=== PATIENT | male | born 1990 ===

== ENCOUNTER 2018-05-19 00:23 | Emergency (ER) | payer MEDICAID, OTHER ==
[~2018-05-19] VITALS: Ht 177.8 cm; Wt 69.9 kg
[2018-05-19 00:48] LABS: Basophils # (auto) 0 uL; Basophils % (auto) 0.6 % (0.0-2.0); Eosinophils # (auto) 0 uL; Eosinophils % (auto) 0.1 % (0.0-7.0); Hematocrit 41.4 % (41.0-53.0); Hemoglobin 13.6 g/dL (13.5-17.5); Lymphocytes # (auto) 2.5 uL; Lymphocytes % (auto) 37.3 % (10.0-50.0); Mean Corpuscular Hemoglobin 30.2 pg (28.0-32.0); Mean Corpuscular Hgb Conc. 32.7 g/dL (32.0-36.0); Mean Corpuscular Volume 92.2 fL (80.0-100.0); Monocytes # (auto) 0.4 uL; Monocytes % (auto) 5.7 % (0.0-12.0); Neutrophils # (auto) 3.7 uL; Neutrophils % (auto) 56.3 % (37.0-80.0); Nucleated Red Blood Cells % 0.1 %; Platelet Count (auto) 247 10^3/uL (140-450); Red Blood Cells 4.49 10^6/uL (4.5-5.90); Red Cell Distribution Width 12.4 % (11.8-14.3); White Blood Cell 6.6 10^3/uL (4.4-10.8)
[2018-05-19 01:05] LABS: Albumin 3.9 g/dL (3.4-5.0); Calcium 8.2 mg/dL (8.5-10.1); Potassium 3.7 mmol/L (3.5-5.1)
[2018-05-19 01:07] LABS: Salicylate 2.1 mg/dL (2.8-20.0)
[2018-05-19 01:10] LABS: Acetaminophen < 2.0 ug/mL (10-30)
[2018-05-19 01:12] LABS: BUN/Creatinine Ratio 10.5; Bilirubin, Total 0.2 mg/dL (0.2-1.0); Total Protein 7.6 g/dL (6.4-8.2)
[2018-05-19] MEDS: THIAMINE 100mg/ml INJ (200mg/2ml VIAL) IV ONE (02:45)
[2018-05-19 03:14] VITALS: BP 110/75
== END 2018-05-19 04:10 | disposition left against medical advice (07) ==
LOC: EDBD 00:23 → ER 00:32
DX: G92 Toxic encephalopathy (principal); R41.82 Altered mental status, unspecified; R42 Dizziness and giddiness; F19.10 Other psychoactive substance abuse, uncomplicated
CPT/HCPCS: 36415; 80053; 80329; 85025; 96374; 99284; J3411